=== PATIENT | male | born 1935 | race Caucasian/White ===

== ENCOUNTER 2016-11-05 01:25 | Inpatient (IN) | payer MEDICARE, OTHER ==
[~2016-11-05 01:25] MED LIST: ANORO ELLIPTA1 EAC1 INH; AUGMENTIN875 MG PO; AVAPRO150 M1 PO; CARDIZEM CD120 M1 PO; CREON PO; ELIQUIS2.5 M1 PO; FLOMAX0.4 M1 PO; HUMALOG100 UNIT/1 SQ; KEFLEX500 M4 PO; LASIX20 M1 PO; LEVAQUIN500 M1 PO; LEVAQUIN750 M1 PO; LEVEMIR100 U/M SQ; LEVEMIR100 UNITS/ SC; LEVEMIR100 UNITS/ SQ; LIPITOR40 M1 PO; LOPRESSOR25 MG/TA1 PO; NORVASC10 M2 PO; NORVASC5 M2 PO; NOVOLOG100 U/M SQ; OXYCODONE/APAP PO; PAIN RELIEVER325 M1 PO; PANCREAZE 16,81 EACH PO; PANCREAZE 21,01 EACH PO; PREDNISONE10 M1 PO; PROTONIX40 M2 PO; SENOKOT-S TABLE1 TAB PO; STOP TAKING; SYNTHROID137 MC1 PO; TAMIFLU6 MG/1 M1 PO; TIROSINT137 MCG PO; TOPROL XL25 M1 PO; VENTOLIN HFA18 G2 INH; ZENPEP DR 10,01 EACH PO; ZENPEP PO
[2016-11-05] MEDS ORDERED: TOPROL XL25 M1 PO (01:43)
[2016-11-05] MEDS ORDERED: LIPITOR40 M1 PO (01:44)
[2016-11-05] MEDS ORDERED: CARDIZEM30 M1 PO (01:45)
[2016-11-05] MEDS ORDERED: CREON DR 12,001 EAC1 (01:47)
[2016-11-05] MEDS ORDERED: NOVOLOG100 UNITS/ SC (01:48)
[2016-11-05 01:57] LABS: BASO % 0.1 % (0-2); EOS % 4.4 % (0-7); EOSINOPHIL ABSOLUTE COUNT 0.3 tho/cmm (0.0-0.7); HCT-HEMATOCRIT 27.9 % (36.0-53.5); HGB-HEMOGLOBIN 9.1 gm/dl (13.5-17.0); IMMATURE GRANULOCYTES ABSOLUTE 0.02 tho/cmm (0-0.03); IMMATURE GRANULOCYTES PERCENT 0.3 % (0-0.3); LYMPH % 20.5 % (20-45); LYMPH ABSOLUTE COUNT 1.6 tho/cmm (0.8-4.5); MCH (MEAN CORPUSCULAR HGB) 31.9 pg (28.0-32.0); MCHC MEAN CORPUSCULAR HGB CONC 32.6 % (32.0-36.0); MCV (MEAN CELL VOLUME) 97.9 fl (82.0-96.0); MEAN PLATELET VOLUME 10.6 cmc (9.4-12.4); MONO % 9.8 % (0-12); MONOCYTE ABSOLUTE COUNT 0.8 tho/cmm (0.0-1.2); NEUTROPHILS % 64.9 % (40-80); PLATELET COUNT 161 tho/cmm (150-450); RED BLOOD COUNT 2.85 mil/cmm (4.40-5.70); RED CELL DISTRIBUTION WIDTH 15.7 % (12.4-16.4); WHITE BLOOD COUNT 7.7 tho/cmm (4.0-10.0)
[2016-11-05 02:11] LABS: ALB/GLOB RATIO 0.5 (0.8-2.0); ALBUMIN 2.2 g/dl (3.5-5.0); ALKALINE PHOSPHATASE 99 U/L (33-138); ALT/SGPT 57 U/L (12-78); ANION GAP 14 mmol/L (0-20); AST/SGOT 43 U/L (10-40); BILIRUBIN,TOTAL 0.3 mg/dl (0.0-1.5); BLOOD UREA NITROGEN 33 mg/dl (6-24); CALCIUM 7.7 mg/dl (8.5-10.5); CARBON DIOXIDE-VENOUS 23 mmol/L (22-32); CHLORIDE 112 mmol/l (96-110); CREATININE 1.42 mg/dl (0.60-1.30); GLUCOSE 95 mg/dL (70-110); POTASSIUM 4.8 mmol/L (3.7-5.1); SODIUM 144 mmol/L (135-145); eGFR VALUE FOR BLACK 53 mL/Min
[2016-11-05 04:07] LABS: URINE BILIRUBIN NEGATIVE (NEG); URINE BLOOD SMALL (NEG); URINE GLUCOSE (UA) NEGATIVE (NEG); URINE KETONE NEGATIVE (NEG); URINE LEUKOCYTE ESTERASE POSITIVE (NEG); URINE NITRITE NEGATIVE (NEG); URINE PROTEIN MODERATE (NEG); URINE SPECIFIC GRAVITY 1.015 (1.003-1.030)
[2016-11-05 04:10] LABS: URINE APPEARANCE CLEAR; URINE COLOR PALE YELLOW
[2016-11-05 04:14] LABS: URINE RBC 0-1 /[HPF] (0-5)
[2016-11-06 05:31] LABS: BLOOD UREA NITROGEN 29 mg/dl (6-24); CALCIUM 7.8 mg/dl (8.5-10.5); CARBON DIOXIDE-VENOUS 30 mmol/L (22-32); CHLORIDE 106 mmol/l (96-110); CREATININE 1.59 mg/dl (0.60-1.30); SODIUM 143 mmol/L (135-145); eGFR VALUE FOR BLACK 46 mL/Min
[2016-11-06 05:36] LABS: ANION GAP 11 mmol/L (0-20); GLUCOSE 152 mg/dL (70-110); POTASSIUM 3.7 mmol/L (3.7-5.1)
[2016-11-07 06:38] LABS: ANION GAP 12 mmol/L (0-20); CALCIUM 7.7 mg/dl (8.5-10.5); CARBON DIOXIDE-VENOUS 27 mmol/L (22-32); CHLORIDE 106 mmol/l (96-110); CREATININE 1.47 mg/dl (0.60-1.30); GLUCOSE 95 mg/dL (70-110); MAGNESIUM 2.1 mg/dl (1.3-2.6); POTASSIUM 3.8 mmol/L (3.7-5.1); SODIUM 141 mmol/L (135-145); eGFR VALUE FOR BLACK 51 mL/Min
[2016-11-07 06:41] LABS: BLOOD UREA NITROGEN 29 mg/dl (6-24)
[2016-11-08 11:55] LABS: ANION GAP 12 mmol/L (0-20); BLOOD UREA NITROGEN 32 mg/dl (6-24); CALCIUM 8.1 mg/dl (8.5-10.5); CARBON DIOXIDE-VENOUS 30 mmol/L (22-32); CHLORIDE 101 mmol/l (96-110); CREATININE 1.76 mg/dl (0.60-1.30); POTASSIUM 4.4 mmol/L (3.7-5.1); SODIUM 139 mmol/L (135-145); eGFR VALUE FOR BLACK 41 mL/Min
[2016-11-08 11:57] LABS: GLUCOSE 193 mg/dL (70-110)
[2016-11-09 15:27] LABS: ANION GAP 12 mmol/L (0-20); BLOOD UREA NITROGEN 42 mg/dl (6-24); CALCIUM 7.6 mg/dl (8.5-10.5); CARBON DIOXIDE-VENOUS 28 mmol/L (22-32); CHLORIDE 101 mmol/l (96-110); CREATININE 1.93 mg/dl (0.60-1.30); GLUCOSE 233 mg/dL (70-110); POTASSIUM 4.8 mmol/L (3.7-5.1); SODIUM 136 mmol/L (135-145); eGFR VALUE FOR BLACK 37 mL/Min
[2016-11-10 06:55] LABS: ANION GAP 12 mmol/L (0-20); BLOOD UREA NITROGEN 45 mg/dl (6-24); CALCIUM 7.6 mg/dl (8.5-10.5); CARBON DIOXIDE-VENOUS 27 mmol/L (22-32); CHLORIDE 104 mmol/l (96-110); CREATININE 1.97 mg/dl (0.60-1.30); GLUCOSE 122 mg/dL (70-110); POTASSIUM 4.6 mmol/L (3.7-5.1); SODIUM 138 mmol/L (135-145); eGFR VALUE FOR BLACK 36 mL/Min
[2016-11-10] MEDS ORDERED: LASIX40 M1 PO (12:15)
[2016-11-10] MEDS ORDERED: POTASSIUM CHLO20 ME3 PO (12:15)
[2016-11-10] MEDS ORDERED: ALDACTONE25 M1 PO (12:16)
[2016-11-10] MEDS ORDERED: FLOMAX0.4 M1 (12:19)
[2016-11-10] MEDS ORDERED: LANOXIN125 MC3 PO (12:31)
== END 2016-11-10 13:05 | DRG 292 ==
LOC: EDMED 01:25 → EMR2 07:52 → PCUB 07:55
PROVIDERS: Emergency Medicine; Hospitalist; Internal Medicine Cardiovascular Disease; Nurse Practitioner Family; ADMIT Internal Medicine
PROC: 4A0D7LZ Measurement of Urinary Volume, Via Natural or Artificial Opening (ICD-10-PCS; principal; 2016-11-05)
DX: I50.33 Acute on chronic diastolic (congestive) heart failure (principal); N17.9 Acute kidney failure, unspecified; E11.65 Type 2 diabetes mellitus with hyperglycemia; I48.0 Paroxysmal atrial fibrillation; J44.9 Chronic obstructive pulmonary disease, unspecified; K86.89 Other specified diseases of pancreas; I12.9 Hypertensive chronic kidney disease with stage 1 through stage 4 chronic kidney disease, or unspecified chronic kidney disease; N18.3 Chronic kidney disease, stage 3 (moderate); R33.9 Retention of urine, unspecified; D63.1 Anemia in chronic kidney disease; I25.10 Atherosclerotic heart disease of native coronary artery without angina pectoris; I35.0 Nonrheumatic aortic (valve) stenosis; E03.9 Hypothyroidism, unspecified; Z79.01 Long term (current) use of anticoagulants; Z96.651 Presence of right artificial knee joint; F17.210 Nicotine dependence, cigarettes, uncomplicated; Z95.1 Presence of aortocoronary bypass graft; I48.2 Chronic atrial fibrillation; Z79.4 Long term (current) use of insulin
CPT/HCPCS: G0378; G8978-GP-CJ; G8979-GP-CI; G8987-GO-CJ; G8988-GO-CI; J1815; J1940

== ENCOUNTER 2016-12-08 00:11 | Emergency (ER) | payer MEDICARE, OTHER ==
[~2016-12-08 00:11] MED LIST changes: +ALDACTONE25 M1 PO; +CARDIZEM30 M1 PO; +CREON DR 12,001 EAC1; +FLOMAX0.4 M1; +LANOXIN125 MC3 PO; +LASIX40 M1 PO; +NOVOLOG100 UNITS/ SC; +POTASSIUM CHLO20 ME3 PO
== END 2016-12-08 00:21 | disposition expired ==
LOC: EDMED 00:11
DX: I46.9 Cardiac arrest, cause unspecified (principal); E11.9 Type 2 diabetes mellitus without complications; I10 Essential (primary) hypertension; I25.2 Old myocardial infarction; J44.9 Chronic obstructive pulmonary disease, unspecified; E78.5 Hyperlipidemia, unspecified
CPT/HCPCS: J0171